=== PATIENT | female | born 1950 | race Caucasian/White ===

== ENCOUNTER 2016-06-13 14:21 | Outpatient (CLI) | payer OTHER ==
--- NOTE | 2016-06-13 15:11 | RAD ---
LUMBAR SPINE 3 VIEWS: HISTORY: Low back pain. Left sciatica. COMPARISON: None. FINDINGS: Five [id number] lumbar-type vertebrae. Very mild levoscoliosis lumbar spine. Mild degenerative disk space disease at L5-S1 as well as at T12-L1. There are anterior osteophytes throughout the lumbar spine. Right upper quadrant surgical clips are present. IMPRESSION: Multilevel degenerative disk space disease, worse at L5-S1. MRI may be necessary in this patient to delineate the exact level of patient's radiculopathy. POS: [facility]UY
== END 2016-06-13 14:22 | disposition home or self-care (01) ==
LOC: NAV RAD 14:21
PROVIDERS: ATTEND Internal Medicine
DX: M54.32 Sciatica, left side (principal); M51.37 Other intervertebral disc degeneration, lumbosacral region
CPT/HCPCS: 72100

== ENCOUNTER 2017-12-07 13:03 | Outpatient (CLI) | payer OTHER ==
[2017-12-07 13:08] LABS: Bilirubin Negative (Negative); Blood, Urine Large (Negative); Clarity Clear (Clear); Glucose, Urine (Dipstick) Negative (Negative); Leukocyte Large (Negative); Nitrite Negative (Negative); Protein, Urine (Dipstick) Trace mg/dL (Neg-Trace); Urobilinogen 0.2 mg/dL (0.2-1.0)
[2017-12-07 13:24] LABS: RBC/HPF 21-50 HPF (0-3); Squamous Epithelial 0-3 HPF (0-3)
[2017-12-07 13:25] LABS: Bacteria/HPF Rare-Few HPF (None Seen)
== END 2017-12-07 13:04 | disposition home or self-care (01) ==
LOC: NAV LAB 13:03
PROVIDERS: ATTEND Internal Medicine
DX: N39.0 Urinary tract infection, site not specified (principal)
CPT/HCPCS: 81001; 87086